=== PATIENT | female | born 1960 | race American Indian/Alaskan Native ===

== ENCOUNTER 2019-11-22 16:43 | Emergency (ER) | payer MEDICARE ==
--- NOTE | 2019-11-22 23:17 | XRay Report ---
CHEST 2 VIEWS INDICATION / CLINICAL INFORMATION: weakness. COMPARISON: None available. FINDINGS: SUPPORT DEVICES: None. HEART / MEDIASTINUM: No significant abnormality. LUNGS / PLEURA: There are mild scattered patchy parenchymal opacities in the right midlung zone, righ t lung base in the left lower lung zone. .No pneumothorax. ADDITIONAL FINDINGS: No significant additional findings. IMPRESSION: There are mild scattered patchy airspace opacities bilaterally. This could represent subsegmental ate lectasis. This could represent a pneumonitis. Signer Name: Willi Soria MD Signed: 11/22/2019 11:13 PM Workstation Name: [id number]
[2019-11-22 23:45] LABS: Alanine Aminotransferase 16 units/L (7-56); Albumin 4.3 g/dL (3.9-5); Blood Urea Nitrogen 15 mg/dL (7-17); Calcium 9.3 mg/dL (8.4-10.2); Hemolysis Index 1
[2019-11-22 23:46] LABS: BUN/Creatinine Ratio 25
[2019-11-22 23:47] LABS: Basophils # (Auto) 0.1 K/mm3 (0.0-0.1); Basophils % (Auto) 0.5 % (0.0-1.8); Eosinophils # (Auto) 0.1 K/mm3 (0.0-0.4); Eosinophils % (Auto) 1.3 % (0.0-4.3); Hematocrit 31.3 % (30.3-42.9); Hemoglobin 11.3 gm/dl (10.1-14.3); Lymphocytes # (Auto) 3.2 K/mm3 (1.2-5.4); Lymphocytes % (Auto) 29.6 % (13.4-35.0); Mean Corpuscular HGB Conc 36 % (30-34); Mean Corpuscular Volume 92 fl (79-97); Monocytes % (Auto) 9.5 % (0.0-7.3); Platelet Count 466 K/mm3 (140-440); Red Cell Distribution Width 12.7 % (13.2-15.2)
--- NOTE | 2019-11-22 23:47 | Emergency Department Report ---
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 Patient states she had Covid test result 2 days ago that was negative however she has had generalized weakness for 1 week , with dry cough there is no obvious fever no chills no sore throat no dizziness or lightheadedness. Patient denies activity intolerance and continues to work. She denies history of asthma or other medical history. Symptoms are rated at 3/10. Symptoms are exacerbated by completing work duties. Symptoms are relieved by rest. There has been no wheezing or stridor. - Related Data Previous Rx's Medication Instructions Recorded Last Taken Type Acetaminophen [Acetaminophen TAB] 1,000 mg PO Q6HR PRN #30 tablet 11/23/19 Unknown Rx Azithromycin 500 mg PO DAILY #5 tablet 11/23/19 Unknown Rx Dexamethasone [Taperdex] 1.5 mg PO DAILY 7 Days #12 11/23/19 Unknown Rx tab.ds.pk Allergies Allergy/AdvReac Type Severity Reaction Status Date / Time No Known Allergies Allergy Unverified 11/22/19 16:56 ED Review of Systems ROS: Stated complaint: FEEL WEAK Other details as noted in HPI Constitutional: malaise. denies: chills, fever Eyes: denies: eye pain, eye discharge, vision change ENT: congestion. denies: ear pain, throat pain Respiratory: cough. denies: shortness of breath, wheezing Cardiovascular: denies: chest pain, palpitations Endocrine: no symptoms reported Gastrointestinal: denies: abdominal pain, nausea, diarrhea Genitourinary: denies: urgency, dysuria, discharge Musculoskeletal: denies: back pain, joint swelling, arthralgia Skin: denies: rash, lesions Neurological: weakness. denies: headache, paresthesias Psychiatric: denies: anxiety, depression Hematological/Lymphatic: denies: easy bleeding, easy bruising ED Past Medical Hx - Past Medical History Previous Medical History?: No - Surgical History Past Surgical History?: No - Medications Home Medications: Home Medications Medication Instructions Recorded Confirmed Last Taken Type Acetaminophen [Acetaminophen TAB] 1,000 mg PO Q6HR PRN #30 tablet 10/17/20 Unknown Rx Azithromycin 500 mg PO DAILY #5 tablet 11/23/19 Unknown Rx Dexamethasone [Taperdex] 1.5 mg PO DAILY 7 Days #12 11/23/19 Unknown Rx tab.ds.pk ED Physical Exam - General Limitations: No Limitations General appearance: alert, in no apparent distress - Head Head exam: Present: atraumatic, normocephalic - Eye Eye exam: Present: normal appearance, PERRL, EOMI Pupils: Present: normal accommodation - ENT ENT exam: Present: normal orophraynx, mucous membranes moist - Neck Neck exam: Present: normal inspection, full ROM. Absent: tenderness - Respiratory Respiratory exam: Present: normal lung sounds bilaterally, chest wall tenderness (right lateral chest tenderness to deep palpation). Absent: respiratory distress, wheezes, rales, rhonchi, stridor - Cardiovascular Cardiovascular Exam: Present: regular rate, normal rhythm, normal heart sounds. Absent: systolic murmur, diastolic murmur, rubs, gallop - GI/Abdominal GI/Abdominal exam: Present: soft, normal bowel sounds. Absent: distended, tenderness, bruit, hernia - Rectal Rectal exam: Present: deferred - Extremities Exam Extremities exam: Present: normal inspection - Back Exam Back exam: Present: normal inspection. Absent: CVA tenderness (R), CVA tenderness (L) - Neurological Exam Neurological exam: Present: alert, oriented X3, CN II-XII intact, normal gait - Psychiatric Psychiatric exam: Present: normal affect, normal mood - Skin Skin exam: Present: warm ED Course Vital Signs 11/22/19 16:57 Temperature 98.2 F Pulse Rate 90 Respiratory 16 Rate Blood Pressure 150/71 O2 Sat by Pulse 97 Oximetry ED Medical Decision Making - Lab Data Result diagrams: 11/22/19 23:05 11/22/19 23:05 - EKG Data EKG shows normal: sinus rhythm Rate: normal - EKG Data Interpretation: normal EKG (NSR, no ST Elevated ID, interp by ed attending) - Radiology Data Radiology results: report reviewed, image reviewed Findings Reporting MD: Willi Soria Dictation Time: November 22, 2019 22:13 T ranscriptionist: Not available Meat Inspector Date: CHEST 2 VIEWS INDICATION / CLINICAL INFORMATION: weakness. COMPARISON: None available. FINDINGS: SUPPORT DEVICES: None. HEART / MEDIASTINUM: No significant abnormality. LUNGS / PLEURA: There are mild scattered patchy parenchymal opacities in the right midlung zone, right lung base in the left lower lung zone. .No pneumothorax. ADDITIONAL FINDINGS: No significant additional findings. IMPRESSION: There are mild scattered patchy airspace opacities bilaterally. This could represent subsegmental atelectasis. This could represent a pneumonitis. Signer Name: Willi Soria MD Signed: 11/22/2019 10:13 PM Workstation Name: [id number] - Medical Decision Making CXR: mild scattered patchy airspace opacities bilaterally. This could represent subsegmental atelectasis. This could represent a pneumonitis. . Labs: Plan: azithromycin, Taperdex, tylenol., PUI precautions isolate for 14 days , follow up with pcp in 2-3 days , return to emergency if symptoms worsen. Critical care attestation.: If time is entered above; I have spent that time in minutes in the direct care of this critically ill patient, excluding procedure time. ED Disposition Clinical Impression: Person under investigation for COVID-19, Exposure to COVID-19 virus CAP (community acquired pneumonia) Qualifiers: Laterality: unspecified laterality Qualified Code(s): J18.9 - Pneumonia, unspecified organism Disposition: DC-01 TO HOME OR SELFCARE Is pt being admited?: No Does the pt Need Aspirin: No Condition: Stable Instructions: COVID-19, Community-acquired Pneumonia (ED) Additional Instructions: Isolate for 14 days as directed, return to emergency if symptoms worsen, call your doctor and advise of PUI prior to making appointment. Prescriptions: Acetaminophen [Acetaminophen TAB] 1,000 mg PO Q6HR PRN #30 tablet PRN Reason: pain fever Azithromycin 500 mg PO DAILY #5 tablet Dexamethasone [Taperdex] 1.5 mg PO DAILY 7 Days #12 tab.ds.pk Referrals: SERGEY FLOR JR, MD [Primary Care Provider] - 12/07/19 Forms: Work/School Release Form(ED) Time of Disposition: 00:20
[2019-11-22] MEDS ORDERED: ACETAMINOPHEN 500 MG TAB PO ONE (23:48)
[2019-11-22] MEDS ORDERED: AZITHROMYCIN 250 MG TAB PO ONE (23:48)
[2019-11-22] MEDS ORDERED: AMOXICILLIN/K CLAV 875/125MG TAB PO ONE (23:48)
[2019-11-23] MEDS ORDERED: DEXAMETHASONE 4 MG TAB PO ONE (00:07)
[2019-11-23 02:05] VITALS: BP 147/76
== END 2019-11-23 00:10 | disposition home or self-care (01) ==
LOC: ED 16:43
DX: J18.8 Other pneumonia, unspecified organism (principal); Z20.828 Contact with and (suspected) exposure to other viral communicable diseases; Z79.899 Other long term (current) drug therapy
CPT/HCPCS: 36415; 71046; 80053; 84484; 85025; 93005; 99284; J8540

== ENCOUNTER 2020-12-21 10:00 | Emergency (ER) | payer BC, MEDICARE ==
[2020-12-21 10:07] VITALS: BP 159/71
--- NOTE | 2020-12-21 10:07 | Emergency Department Report ---
ED General Adult HPI - General Chief complaint: Headache Stated complaint: HEAD PAIN Time Seen by Provider: 12/21/20 10:03 - History of Present Illness Initial comments: Patient presents with a several day history of headache and rash. She noticed a headache on the left side and then the left forehead. She then noticed a blister type rash. This is a burning and aching pain. She has no visual component. There is no blurry vision or double vision. She has no pain in the eye itself. Patient came in for evaluation treatment because of the symptoms. She is never had this before. She has not noticed any aggravating or a lleviating factors. She is taken [id number] medication without symptomatic improvement. There is no recent travel or trauma. She is had no other rash. She has not changed laundry soaps or bath soaps. She has not changed any type of hair product. - Related Data Previous Rx's Medication Instructions Recorded Last Taken Type Acetaminophen [Acetaminophen TAB] 1,000 mg PO Q6HR PRN #30 tablet 11/23/19 Unknown Rx Dexamethasone [Taperdex] 1.5 mg PO DAILY 7 Days #12 12/21/20 Unknown Rx tab.ds.pk HYDROcodone/APAP 5-325 [Woden 1 each PO Q6HR PRN #12 tablet 12/21/20 Unknown Rx 5/325] valACYclovir [Valtrex] 500 mg PO TID #21 tab 12/21/20 Unknown Rx Allergies Allergy/AdvReac Type Severity Reaction Status Date / Time No Known Allergies Allergy Unverified 11/22/19 16:56 ED Review of Systems ROS: Stated complaint: HEAD PAIN Other details as noted in HPI Comment: All other systems reviewed and negative Constitutional: denies: fever Eyes: denies: eye pain, eye discharge, vision change ENT: denies: throat pain Respiratory: denies: cough Cardiovascular: denies: chest pain Endocrine: denies: unexplained weight loss Gastrointestinal: denies: abdominal pain Genitourinary: denies: dysuria Musculoskeletal: denies: back pain Skin: as per HPI Neurological: as per HPI Hematological/Lymphatic: denies: easy bruising ED Past Medical Hx - Past Medical History Previous Medical History?: No - Family History Family history: no significant - Medications Home Medications: Home Medications Medication Instructions Recorded Confirmed Last Taken Type Acetaminophen [Acetaminophen TAB] 1,000 mg PO Q6HR PRN #30 tablet 10/17/20 Unknown Rx Dexamethasone [Taperdex] 1.5 mg PO DAILY 7 Days #12 12/21/20 Unknown Rx tab.ds.pk HYDROcodone/APAP 5-325 [Woden 1 each PO Q6HR PRN #12 tablet 12/21/20 Unknown Rx 5/325] valACYclovir [Valtrex] 500 mg PO TID #21 tab 12/21/20 Unknown Rx ED Physical Exam - General Limitations: No Limitations, Other General appearance: alert, in no apparent distress (Pulse ox noted and normal) - Head Head exam: Present: other (Patient has a vesicular rash noted to the left forehead and in the hairline. There is involvement of the left brow area. There is no skin excoriation. There are multiple vesicles that are of various stages in appearance.) - Eye Eye exam: Present: normal appearance, PERRL, EOMI. Absent: scleral icterus, conjunctival injection - ENT ENT exam: Present: normal exam, mucous membranes moist - Neck Neck exam: Present: normal inspection. Absent: meningismus - Respiratory Respiratory exam: Present: normal lung sounds bilaterally. Absent: respiratory distress - Cardiovascular Cardiovascular Exam: Present: regular rate, normal rhythm - GI/Abdominal GI/Abdominal exam: Present: soft - Extremities Exam Extremities exam: Present: normal capillary refill - Back Exam Back exam: Present: full ROM - Neurological Exam Neurological exam: Present: alert, oriented X3, CN II-XII intact, normal gait. Absent: motor sensory deficit - Psychiatric Psychiatric exam: Present: normal affect - Skin Skin exam: Present: warm, dry ED Course Vital Signs 12/21/20 10:04 Temperature 98.9 F Pulse Rate 79 Respiratory 16 Rate Blood Pressure 159/71 [Left] O2 Sat by Pulse 100 Oximetry - Reevaluation(s) Reevaluation #1: 12/21/20 10:10 Patient was discharged. Old records reviewed. ED Medical Decision Making - Medical Decision Making Patient presents with a headache and rash. She has evidence of shingles. There is no evidence of ocular involvement. Patient did not have any conjunctival injection or eye symptoms. We have discussed strict return precautions regarding ocular symptoms and involvement. Patient has no evidence of a secondary cellulitis. There is no visible sign of trauma. She has no fever or stiff neck. I am not concerned for meningitis, subdural, or epidural hematomas. There is no evidence of cellulitis. Critical Care Time: No Critical care attestation.: If time is entered above; I have spent that time in minutes in the direct care of this critically ill patient, excluding procedure time. ED Disposition Clinical Impression: Shingles Qualifiers: Herpes zoster complications: without complications Qualified Code(s): B02.9 - Zoster without complications Disposition: HOME / SELF CARE / HOMELESS Is pt being admited?: No Condition: Fair Instructions: Shingles Additional Instructions: Return if you develop any visual changes or eye pain. See your regular doctor in 48 hours for recheck. Take the medication. Try not to pop the blisters or rub the rash. Prescriptions: HYDROcodone/APAP 5-325 [Woden 5/325] 1 each PO Q6HR PRN #12 tablet PRN Reason: Pain Dexamethasone [Taperdex] 1.5 mg PO DAILY 7 Days #12 tab.ds.pk valACYclovir [Valtrex] 500 mg PO TID #21 tab Referrals: PRIMARY CAREMD [Referring] - 3-5 Days JUAN MIGUEL ZHANG MD [Staff Physician] - 3-5 Days
== END 2020-12-21 10:30 | disposition home or self-care (01) ==
LOC: ED 10:00
DX: B02.9 Zoster without complications (principal)
CPT/HCPCS: 99281